=== PATIENT | female | born 1990 | race Caucasian/White ===

== ENCOUNTER 2017-09-01 18:58 | Emergency (ER) | payer OTHER ==
[~2017-09-01] VITALS: Ht 152.4 cm; Wt 52.2 kg
[2017-09-01] MEDS ORDERED: XULANE PATCH1 EACH (19:13)
[2017-09-01] MEDS ORDERED: BUSPIRONE HCL10 MG PO (19:14)
[2017-09-01] MEDS ORDERED: VENTOLIN HFA 1818 GM INH (19:14)
[2017-09-01 20:10] LABS: ABSOLUTE EOSINOPHILS 0.1 thou/uL (0.0-0.7); ABSOLUTE LYMPHOCYTES 2.5 thou/uL (0.8-5.3); ABSOLUTE MONOCYTES 0.5 thou/uL (0.0-1.2); ABSOLUTE NEUTROPHILS 4.5 thou/uL (1.6-8.1); BASOPHILS 0.6 %; EOSINOPHILS 1.2 %; HEMATOCRIT 38.4 % (37.0-47.0); HEMOGLOBIN 12.8 gm/dL (12.0-15.0); LYMPHOCYTES 32.8 %; MCH 30.8 pg (26.0-34.0); MCHC 33.3 g/dL (28.0-37.0); MCV 92.4 fL (80.0-100.0); MONOCYTES 6.7 %; MPV 7.5 fl. (7.2-11.1); NUCLEATED RBCS 0 /100WBC; PLATELET COUNT* 234 thou/uL (150-400); POLYS 58.7 %; RBC 4.16 mil/uL (4.20-5.00); RDW-CV 12.6 % (10.5-14.5); WBC 7.6 thou/uL (4.0-11.0)
[2017-09-01 20:39] VITALS: BP 111/75
== END 2017-09-01 20:41 | disposition home or self-care (01) ==
LOC: M.ERS 18:58
PROVIDERS: Personal Emergency Response Attendant
DX: Z04.41 Encounter for examination and observation following alleged adult rape (principal); T74.21XA Adult sexual abuse, confirmed, initial encounter; Z88.2 Allergy status to sulfonamides; Y07.03 Male partner, perpetrator of maltreatment and neglect